=== PATIENT | male | born 1980 | race Caucasian/White ===

== ENCOUNTER 2017-11-24 19:06 | Emergency (ER) | payer OTHER, MEDICAID, SELFPAY ==
[2017-11-24 19:18] VITALS: BP 162/96; PULSE 121; RESP 15; O2SAT 98
--- NOTE | 2017-11-24 19:37 | PC.NURSE ---
Pt voided in urinal, then threw it under the door. Door was shut r/t patient escalation, increased verbal threats to staff, banging, unsafe behavior. Dr. Chacon attempted to verbally de-escalate however pt continued to yell in room.Kole DAS called back for assistance.
--- NOTE | 2017-11-24 19:42 | ED_ITS ---
HPI - Psych General Chief Complaint: Psychiatric Symptoms Stated Complaint: ETOH, Involuntary Time Seen by Provider: 11/24/17 19:10 Source: patient and police Mode of arrival: other Limitations: altered mental status History of Present Illness HPI Narrative: 36-year-old male with history of depression and possible PTSD presents with and [place] police for evaluation of possible suicidal ideation. The patient was drinking at a local bar when he became overly intoxicated and the priors of the bar notified police for evaluation. He became quite upset and violence on their arrival and stated he wanted to hurt himself (the details can be found within the police affit n[place]). On arrival he was agitated and moderately violence and in handcuffs, escorted by for police. He denied any symptoms but was screaming at the police to take the handcuffs off. MD complaint: suicidal ideation Onset (ago): minute(s) Duration: constant History of same: No Relieving factors: none Exacerbating factors: none Context: recent alcohol abuse Associated psychiatric symptoms: depression and suicidal ideation Associated symptoms: denies other symptoms Treatments prior to arrival: none Related Data Home Medications Medication Instructions Recorded Confirmed chlorthalidone 25 mg PO DAILY 11/24/17 11/24/17 escitalopram oxalate 20 mg PO DAILY 11/24/17 11/24/17 metoprolol tartrate 100 mg PO DAILY 11/24/17 11/24/17 omeprazole 20 mg PO DAILY 11/24/17 11/24/17 Allergies Allergy/AdvReac Type Severity Reaction Status Date / Time amoxicillin Allergy Unknown Verified 11/24/17 19:13 Penicillins Allergy Unknown Verified 11/24/17 19:13 Review of Systems Review of Systems unobtainable due to mental status Psychiatric Reports depression and Reports suicidal ideation Comments: The above review of systems secondary to police interview [facility] Social History Smoking Status: Unknown if ever smoked Exam Narrative Exam Narrative: 36-year-old male is very agitated, wearing handcuffs and yelling at police and insisting multiple medical staff leave the room Initial Vital Signs Initial Vital Signs: Vital Signs Pulse Rate 121 H 11/24/17 19:18 Respiratory Rate 15 11/24/17 19:18 Blood Pressure 162/96 H 11/24/17 19:18 Pulse Oximetry 98 11/24/17 19:18 Const General: well developed, acute distress and combative Nutritional Appearance: well nourished Orientation: alert, awake and confused Limitations: altered mental status HENMT Head: normocephalic and atraumatic Ears: external ears normal and TM's normal bilaterally Nose: external nose normal and No nasal discharge Face and sinus: sinuses nontender, face symmetric, no sinus tenderness and No dry mucous membranes Mouth: oral mucosae normal and moist mucous membranes Teeth and gingiva: dentition normal Throat: tonsils normal and uvula midline Resp Effort & Inspection: normal respiratory effort, able to speak in complete sentences, no respiratory distress and no use of accessory muscles Auscultation: clear to auscultation bilaterally, no rales, no rhonchi and no wheezes Cardio Rate: tachycardic Rhythm: regular rhythm Heart Sounds: no click, no gallops, no murmurs and no rubs Pulses: normal peripheral pulses Back/Spine/Pelvis Back: No CVA tenderness Cervical Spine: cervical ROM normal and No pain with cervical ROM Thoracic/Lumbar Spine: thoracic and lumbar spine normal to inspection Skin Other: Patient has some erythema and ecchymosis around his wrists where the Neuro General: alert Speech: speech normal Gait: normal gait Extrem General: full ROM, no clubbing, cyanosis or edema, no pedal edema and no calf tenderness Psych Appearance: disheveled Speech and Movement: agitated Mood: angry and irritable mood Affect: irritable affect Attitude: belligerent Judgment: poor Course Orders Ordered: ED Orders 11/24/17 20:40 Complete Blood Count AUTO DIFF Stat Comprehensive Metabolic Panel Stat Ethanol (ETOH) Stat Thyroid Stimulating Hormone Stat 11/24/17 22:15 Urine Drug Screen, Rapid Stat Urine Microscopic Stat Discontinued Medications Diphenhydramine HCl (Benadryl) 50 mg IM NOW ONE Stop: 11/24/17 19:46 Last Admin: 11/24/17 19:52 Dose: 50 mg Haloperidol (Haldol) 5 mg IM NOW ONE Stop: 11/24/17 19:38 Last Admin: 11/24/17 19:52 Dose: 5 mg Lorazepam (Ativan) 2 mg IM NOW ONE Stop: 11/24/17 19:38 Last Admin: 11/24/17 19:52 Dose: 2 mg Olanzapine (Zyprexa Zydis) 20 mg PO NOW ONE Stop: 11/24/17 21:04 Last Admin: 11/24/17 21:04 Dose: 20 mg Reevaluation(s) Reevaluation #1: multiple attempts at verbal de-escalation and it would seem that the patient had calmed down once police left. However we waited about 10 min and he became quite belligerent and aggressive, kicking a door and beating his head against the door and very obviously is a significant risk to himself. Given failed attempts at verbal de- escalation decision is made to administer medications to prevent the patient from hurting himself or staff and allow us to complete medical exam. Police have been dispatched to the emergency department to help administration of medications in a safe manner Time: 19:40 Reevaluation #2: Patient largely showed improvement after Haldol and Ativan but after 1 hr began has cleaning again in tried running out of the room. Again I tried speaking with the patient and verbal ED escalating and he became quite upset again and was certainly wrapping up, at which point I asked if he would be willing to take a corinna is a Pean oral dissolving tablets to which he responded yes Reevaluation #3: Patient shows good response to Jame the pain and as the result where backing off the restraint orders and the doors opened Additional Reevaluation(s): 2365 - patient re-interviewed and is now alert and oriented. He is able to recall the events of the day that led him here and while he admits to drinking he is surprised at the level of his initial blood alcohol as he did not think he drank that much. He denies any active suicidal or homicidal ideation and admits that he became upset while drinking. He is under the care of a therapist at the [facility] and has a scheduled appointment on Saturday. He denies missing any doses of his medications or any history of involuntary hospitalization. He is able to demonstrate capacity and requests discharge. I have asked if he would like to speak to our care crisis [facility] and perhaps set up a next day appointment which he states he would prefer to stay with his own therapist as he does not like to rehash his background. He is able to contract for safety and request that I call his significant other Smitha whom is a social research assistant by [employer]. My conversation with her went quite well and she is ready and willing to come and see him and potentially take him home. Vital Signs - 8 hr 11/24/17 19:18 Pulse Rate 121 H Respiratory Rate 15 Blood Pressure [Right Arm] 162/96 H Pulse Oximetry 98 Mental Status Exam Patient Appearance: Unkempt and Disheveled Level of Consciousness: Alert and Restless Speech Pattern: Animated Mood Description: Angry and Anxious Thought Process:: Disorganized Physical Status Respirations: Unlabored Cardiac: Regular Rate Circulation: peripheral pulses palpable Assessment of Situation Behavior necessitating restraint: agitated, suicidal comments Restraint Risks: Airway obstruction Restraint risks explained to patient: Yes Restraint risks explained to family: No Patient's response to restraint use: calm upon departure of PD MDM - Psych Lab Data Result diagrams: 11/24/17 20:40 11/24/17 20:40 Lab Results 11/24/17 11/24/17 11/24/17 Range/Units 20:40 20:40 20:40 WBC 10.2 (4.5-11.0) X10^3/uL RBC 6.45 H (4.5-5.9) X10^6/uL Hgb 18.5 H (13.5-17.5) g/dL Hct 51.7 (41-53) % MCV 80.2 (80-100) fL MCH 28.6 (26-34) PG MCHC 35.7 (30-36) % RDW 15.0 H (11.6-14.8) % Plt Count 352 (150-400) X10^3/uL Neut % (Auto) 60.0 (50-75) % Lymph % (Auto) 30.0 (25-40) % Cloud % (Auto) 6.1 (3-14) % Eos % (Auto) 3.0 (2-4) % Baso % (Auto) 0.9 (0-2) % Neut # (Auto) 6100 H (9943-0199) /uL Sodium 149 H (137-145) mmol/L Potassium 3.6 (3.4-5.1) mmol/L Chloride 105 (98-107) mmol/L Carbon Dioxide 24 (22-32) mmol/L BUN 11 (9-20) mg/dL Creatinine 1.00 (0.66-1.25) mg/dL Estimated GFR > 60.0 (>60) mL/min BUN/Creatinine Ratio 11.0 (6-22) Glucose 114 H (70-100) mg/dL Calcium 9.5 (8.4-10.2) mg/dL Total Bilirubin 0.8 (0.2-1.3) mg/dL AST 73 H (17-59) IU/L ALT 80 H (21-72) IU/L Alkaline Phosphatase 77 (38-126) U/L Total Protein 8.7 H (6.3-8.2) g/dL Albumin 5.1 H (3.5-5.0) g/dL Globulin 3.6 (1.7-4.1) g/dL Albumin/Globulin Ratio 1.4 (1.0-2.8) TSH 2.00 (0.47-4.68) uIU/mL Urine RBC (0-5/HPF) Urine WBC (0-5/HPF) Ur Squamous Epith Cells Urine Bacteria (None) Ur Culture Indicated? Micro UA Comment Urine Opiates Screen (Negative) Ur Oxycodone Screen (Negative) Urine Methadone Screen (Negative) Ur Barbiturates Screen (Negative) U Tricyclic Antidepress (Negative) Ur Phencyclidine Scrn (Negative) Ur Amphetamines Screen (Negative) U Methamphetamines Scrn (Negative) Ur MDMA Scrn (Ecstasy) (Negative) U Benzodiazepines Scrn (Negative) Urine Cocaine Screen (Negative) U Marijuana (THC) Screen (Negative) Ethyl Alcohol 277 mg/dL 11/24/17 11/24/17 Range/Units 22:15 22:15 WBC (4.5-11.0) X10^3/uL RBC (4.5-5.9) X10^6/uL Hgb (13.5-17.5) g/dL Hct (41-53) % MCV (80-100) fL MCH (26-34) PG MCHC (30-36) % RDW (11.6-14.8) % Plt Count (150-400) X10^3/uL Neut % (Auto) (50-75) % Lymph % (Auto) (25-40) % Cloud % (Auto) (3-14) % Eos % (Auto) (2-4) % Baso % (Auto) (0-2) % Neut # (Auto) (2420-2948) /uL Sodium (137-145) mmol/L Potassium (3.4-5.1) mmol/L Chloride (98-107) mmol/L Carbon Dioxide (22-32) mmol/L BUN (9-20) mg/dL Creatinine (0.66-1.25) mg/dL Estimated GFR (>60) mL/min BUN/Creatinine Ratio (6-22) Glucose (70-100) mg/dL Calcium (8.4-10.2) mg/dL Total Bilirubin (0.2-1.3) mg/dL AST (17-59) IU/L ALT (21-72) IU/L Alkaline Phosphatase (38-126) U/L Total Protein (6.3-8.2) g/dL Albumin (3.5-5.0) g/dL Globulin (1.7-4.1) g/dL Albumin/Globulin Ratio (1.0-2.8) TSH (0.47-4.68) uIU/mL Urine RBC None seen (0-5/HPF) Urine WBC None seen (0-5/HPF) Ur Squamous Epith Cells 0-1 /hpf Urine Bacteria None seen (None) Ur Culture Indicated? Cult not indicated Micro UA Comment Microscopic normal Urine Opiates Screen Negative (Negative) Ur Oxycodone Screen Negative (Negative) Urine Methadone Screen Negative (Negative) Ur Barbiturates Screen Negative (Negative) U Tricyclic Antidepress Negative (Negative) Ur Phencyclidine Scrn Negative (Negative) Ur Amphetamines Screen Negative (Negative) U Methamphetamines Scrn Negative (Negative) Ur MDMA Scrn (Ecstasy) Negative (Negative) U Benzodiazepines Scrn Positive H (Negative) Urine Cocaine Screen Negative (Negative) U Marijuana (THC) Screen Positive H (Negative) Ethyl Alcohol mg/dL Discharge Plan Departure Patient Disposition: Home Clinical Impression: Alcohol abuse with alcohol-induced mood disorder Instructions: Depression, Alcohol Use Disorder Activity Restrictions/Additional Instructions: *You have been diagnosed with [ acute alcohol intoxication with agitation and depression ] *What to do: *Take medications as directed *Follow up with your therapist as planned. I have included contact info for [facility], please contact them if you feel your self escalating *Return to ER if you should have any new, worsening or concerning symptoms Prescriptions: No Action metoprolol tartrate 100 mg Tablet 100 mg PO DAILY RF: 0 chlorthalidone 25 mg Tablet 25 mg PO DAILY RF: 0 escitalopram oxalate 20 mg Tablet 20 mg PO DAILY RF: 0 omeprazole 20 mg Tablet,Delayed Release (Dr/Ec) 20 mg PO DAILY RF: 0 Referrals: Holly Aleman DPM [Primary Care Provider] - [facility] [Outside]
[2017-11-24] MEDS: LORazepam 2 MG/ML SYRINGE IM (19:52)
[2017-11-24] MEDS: HALOPERIDOL 5 MG/ML VIAL IM (19:52)
[2017-11-24] MEDS: diphenhydrAMINE 50 MG/ML VIAL IM (19:52)
--- NOTE | 2017-11-24 20:00 | PC.NURSE ---
Patient banging on door and yelling, let me call my !
--- NOTE | 2017-11-24 20:25 | PC.NURSE ---
1939: Pt requesting to go to the bathroom. Informed pt we could only use the urinal and gave pt a urinal. Unsure if pt used urinal and then dumped urine on floor or if patient urinated on floor. Proceeded to get increasingly aggressive and rushing staff while yelling at staff. Door closed to room and [employer] called back to ER. [employer] arrived and assisted to hold patient to give medications at 1949. Bed was removed from room and mattress placed on floor and pt was placed on mattress. Floor cleaned of urine at this time. Cleared room and closed door. 1999: Pt continues to yell and hit/kick the door asking to call . Pt would not calm down and stop hitting the door. [employer] back into room and placed handcuffs on Pt. Door remained open with cuffs on patient. Pt had mulitple tries of getting up and tried to leave room. [employer] prevented pt from leaving. 2024: Pt lying on mat at this time. sitting up from time to time but not rushing door.
--- NOTE | 2017-11-24 20:31 | PC.NURSE ---
Patient sitting on floor.
--- NOTE | 2017-11-24 20:46 | PC.NURSE ---
Patient laying in bed.
[2017-11-24] MEDS: OLANZapine ODT 10 MG TAB 20 MG PO (21:04)
--- NOTE | 2017-11-24 21:06 | PC.NURSE ---
Pt allowed nurse to check blood glucose, when asked if lab could draw blood pt refused and began to yell. Provider in room and patient agreed to take oral zyprexa. Pt took without difficult. Continues in hand cuffs with door open. [employer] standing by.
--- NOTE | 2017-11-24 21:42 | PC.NURSE ---
Pt has agreed to blood draw. Hasn't had a loud out burst or tried to exit room with [employer] standby. [employer] assisted in case pt became aggressive during blood draw. [employer] removed cuffs without incident and pt layed down on mat.
--- NOTE | 2017-11-24 21:43 | PC.NURSE ---
Patient resting on mattress.
--- NOTE | 2017-11-24 21:48 | PC.NURSE ---
Patient resting on mattress.
[2017-11-24 21:57] LABS: Alanine Aminotransferase 80 IU/L (21-72); Albumin 5.1 g/dL (3.5-5.0); Albumin Globulin Ratio 1.4 (1.0-2.8); Alkaline Phosphatase 77 U/L (38-126); Aspartate Aminotransferase 73 IU/L (17-59); Bilirubin Total 0.8 mg/dL (0.2-1.3); Blood Urea Nitrogen 11 mg/dL (9-20); Calcium 9.5 mg/dL (8.4-10.2); Carbon Dioxide 24 mmol/L (22-32); Chloride 105 mmol/L (98-107); Estimated Glomerular Filt Rate > 60.0 mL/min (>60); Ethanol (ETOH) 277 mg/dL; Globulin 3.6 g/dL (1.7-4.1); Glucose 114 mg/dL (70-100); HEMOLYSIS 23 (0-50); Potassium 3.6 mmol/L (3.4-5.1); Sodium 149 mmol/L (137-145); Total Protein 8.7 g/dL (6.3-8.2)
--- NOTE | 2017-11-24 22:01 | PC.NURSE ---
Patient resting on mattress.
[2017-11-24 22:08] LABS: Add Manual Diff / Slide Review NO; Basophils Percent Auto 0.9 % (0-2); Hematocrit 51.7 % (41-53); Hemoglobin 18.5 g/dL (13.5-17.5); Mean Corpuscular HGB Conc 35.7 % (30-36); Mean Corpuscular Hemoglobin 28.6 PG (26-34); Mean Corpuscular Volume 80.2 fL (80-100); Monocytes Percent Auto 6.1 % (3-14); Neutrophils Absolute Auto 6100 /uL (3000-5900); Platelet Count 352 X10^3/uL (150-400); Red Blood Cell Count 6.45 X10^6/uL (4.5-5.9); White Blood Cell Count 10.2 X10^3/uL (4.5-11.0)
--- NOTE | 2017-11-24 22:15 | PC.NURSE ---
GENERAL DOC sent from [facility], unable to access ED Restraint Pt Checks, see paper documentation for Q15M checks.
[2017-11-24 22:18] LABS: Bacteria Urine None Seen; RBC Urine None Seen (0-5/HPF); WBC Urine None Seen (0-5/HPF)
[2017-11-24 22:26] LABS: Urine Amphetamines Negative (Negative); Urine Cocaine Negative (Negative); Urine MDMA Negative (Negative); Urine Methamphetamines Negative (Negative); Urine Morphine/Opi cutoff 2000 Negative (Negative); Urine Phencyclidine Negative (Negative); Urine Tetrahydrocannabinol Positive (Negative)
[2017-11-24 22:27] LABS: Urine Barbiturates Negative (Negative); Urine Benzodiazepines Positive (Negative); Urine Methadone Negative (Negative); Urine Oxycodone Negative (Negative); Urine Tricyclic Antidepressant Negative (Negative)
[2017-11-24 22:52] LABS: Squamous Epithelial Cell Urine 0-1 /HPF
[2017-11-24 22:53] LABS: Culture Indicated Urine Cult Not Indicated; Urine Comments Microscopic Normal
--- NOTE | 2017-11-24 23:09 | PC.NURSE ---
Dr Chacon speaking with patient.
[2017-11-25 00:51] VITALS: BP 122/93; PULSE 104; RESP 18; O2SAT 97
== END 2017-11-25 00:51 | disposition home or self-care (01) ==
PROVIDERS: Emergency Provider Emergency Medicine; Family Provider Podiatrist; PCP Podiatrist
DX: F10.29 Alcohol dependence with unspecified alcohol-induced disorder (principal)
CPT/HCPCS: 36415; 80053; 80305; 80320; 81003; 81015; 82962; 84443; 85025; 96372; 99284; 99291; 99292; J1200; J1630; J2060